=== PATIENT | male | born 1960 | race Caucasian/White ===

== ENCOUNTER 2019-07-27 15:03 | Emergency (ER) | payer SELFPAY ==
[~2019-07-27] VITALS: Ht 185.4 cm; Wt 75.0 kg
[~2019-07-27 15:03] MED LIST: DOXYCYCLINE 10100 MG PO; PERCOCET 325 MG1 TA2 PO; ZITHROMAX Z PA250 MG PO
[2019-07-27 15:12] VITALS: TEMP 98
[2019-07-27 15:41] LABS: BASO # 0.1 (0.0-0.2); BASO % 0.6 % (0.0-2.0); EOS # 0.2 (0.0-0.7); EOS % 1.6 % (0-4.0); GRAN # 8.2 (1.4-6.5); HEMATOCRIT 45.3 % (42.0-52.0); LYMPH # 1.6 (1.2-3.4); LYMPH % 15.3 % (20.0-51.0); MEAN CELL VOLUME 93 fl (80.0-100.0); MEAN CORPUSCULAR HEMOGLOBIN 33 pg (27.0-31.0); MEAN CORPUSCULAR HGB CONC 35 g/dl (33.0-37.0); MEAN PLATELET VOLUME 10.4 fl (7.4-10.4); MONO # 0.7 (0.1-0.6); MONO % 6.2 % (1.7-9.3); PLATELET COUNT 231 K/mm3 (130-400); RED BLOOD COUNT 4.86 M/mm3 (4.20-5.60); REDCELL DISTRIBUTION WIDTH-CV 12.7 % (11.5-14.5)
[2019-07-27 15:58] LABS: ALBUMIN 4.4 gm/dL (3.5-5.0); BILIRUBIN,TOTAL 0.5 mg/dL (0.0-1.0); C-REACTIVE PROTEIN 1.5 mg/dL (0.0-0.9); CALCIUM 9.2 mg/dL (8.4-10.2); CREATININE, serum 0.74 (0.66-1.25); POTASSIUM 3.9 mmol/L (3.4-5.0); TOTAL PROTEIN 7.5 gm/dL (6.4-8.2)
[2019-07-27 16:34] LABS: COLLECTION METHOD CLEAN CATCH
[2019-07-27 16:50] LABS: AMORPHOUS CRYSTAL Present /uL; MUCOUS Present /lpf; PH 9 (5-8); SQUAMOUS EPITHELIAL None Seen /hpf; URINE APPEARANCE Cloudy; URINE BACTERIA None Seen /hpf; URINE BILIRUBIN Negative (NEGATIVE); URINE BLOOD Negative (NEGATIVE); URINE COLOR Yellow; URINE GLUCOSE Negative (NEGATIVE); URINE KETONE 1+ (NEGATIVE); URINE LEUKOCYTE ESTERASE Negative (NEGATIVE); URINE NITRATE Negative (NEGATIVE); URINE PROTEIN(semi-quant) Negative (NEGATIVE); URINE UROBILINOGEN Negative (NEGATIVE)
[2019-07-27] MEDS ORDERED: NORCO 325 MG-51 TAB PO (17:28)
[2019-07-27] MEDS ORDERED: PREDNISONE20 MG PO (17:28)
[2019-07-27] MEDS ORDERED: FLEXERIL 1010 MG/TAB PO (17:28)
[2019-07-27 18:54] VITALS: BP 141/71; PULSE 71
== END 2019-07-27 18:55 | disposition home or self-care (01) ==
LOC: COL.ER 15:03
PROVIDERS: Emergency Medicine
DX: M54.5 Low back pain (principal); I10 Essential (primary) hypertension; R10.9 Unspecified abdominal pain; F17.210 Nicotine dependence, cigarettes, uncomplicated
CPT/HCPCS: J1170; J1885; J2405; J3010; J3360; J7030; J7512; Q9967

== ENCOUNTER 2021-01-26 12:07 | Day surgery (SDC) | payer OTHER ==
[~2021-01-26] VITALS: Ht 185.4 cm; Wt 78.0 kg
[~2021-01-26 12:07] MED LIST changes: +FLEXERIL 1010 MG/TAB PO; +NORCO 325 MG-51 TAB PO; +PREDNISONE20 MG PO
[2021-01-26 12:59] VITALS: BP 186/97; PULSE 79; TEMP 98.1
[2021-01-26] MEDS ORDERED: NORCO 325 MG-51 TAB PO ×3 (15:38→17:57)
[2021-01-26] MEDS ORDERED: MOTRIN 600600 MG/TAB PO ×3 (15:38→17:57)
[2021-01-26 16:05] VITALS: BP 132/81; PULSE 70; TEMP 98.1
--- NOTE | 2021-01-26 16:05 | NUR ---
The patient arrived back to [facility] from the recovery room at this time. The patient appears drowsy but arouses easily to his name. The patient has three lap sites to his abdomen that are covered with surgical glue and without redness or edema. Post operative vital signs were started at this time. The patient has oxygen in place at 2L per nasal cannula. The patient denies wanting anything to eat or drink at this time. Call light is wtihin reach. Will continue to monitor the patient.
[2021-01-26 16:20] VITALS: BP 138/83; PULSE 69
--- NOTE | 2021-01-26 16:20 | NUR ---
The patient appears more alert and agrees to try some orange juice and pudding at this time. Vital signs appear stable. The patient's oxygen was weaned down to 1L at this time. Call light is within reach. Will continue to monitor the patient.
[2021-01-26 16:35] VITALS: BP 137/83; PULSE 63
--- NOTE | 2021-01-26 16:35 | NUR ---
The patient has finished his pudding and drank some juice and appeared to tolerate both well. The patient does report some increased pain in his abdomen and was given a PRN dose of [place] one tab at this time. The nurse attempted to get the patient's family from the waiting room to be at the patient's bedside but they could not be located at this time. The nurse will continue to look for the patient's family.
[2021-01-26 16:50] VITALS: BP 145/89; PULSE 67
--- NOTE | 2021-01-26 16:50 | NUR ---
The patient appears to be resting comfortably on the cart at this time. Respirtions even and unlabored. Will continue to monitor the patient.
--- NOTE | 2021-01-26 17:02 | NUR ---
The patient ambulated to the bathroom with the stand by assistance of one nurse and appeared to tolerate the activity well. The patient voided without difficulty and voices a desire to be discharged home.
--- NOTE | 2021-01-26 17:15 | NUR ---
Discharge instructions were reviewed with the patient at this time. He verbalized understanding and has no questions for the nurse at this time. The patient's IV to his left hand was removed and a pressure dressing was applied to the site. The patient is dressed and ready to to be escorted out.
--- NOTE | 2021-01-26 17:25 | NUR ---
The patient was escorted out to a private vehicle by UYEN Adams. The patient's family is present to drive him home. The patient's belongings were sent with him. The patient's family is worried that they won't make it home before the pharmacy the prescription was sent to closes and asks the nurse to have the doctor send it to a different local pharmacy.
--- NOTE | 2021-01-26 17:35 | NUR ---
Dr. Hanson is going to change the location of the patient's prescription to [facility]. The patient and his family were notified of this and will supervisor opening and picking the patient's prescrption on their way out of town.
== END 2021-01-26 17:35 | disposition home or self-care (01) ==
LOC: SDCO 12:07
DX: K40.90 Unilateral inguinal hernia, without obstruction or gangrene, not specified as recurrent (principal); D17.6 Benign lipomatous neoplasm of spermatic cord; I10 Essential (primary) hypertension; Z20.822 Contact with and (suspected) exposure to COVID-19; Z80.3 Family history of malignant neoplasm of breast
CPT/HCPCS: C1781; J1100; J1885; J2250; J2405; J2704; J3010; J7120